=== PATIENT | female | born 1930 | race Caucasian/White ===

== ENCOUNTER → 2016-05-31 | Outpatient (CLI) | payer OTHER ==
[~2016-05-31] MED LIST: ACTONEL30 MG PO; APAP500 PO; ASPIRIN EC81 M1 PO; AZILECT1 MG PO; BUTRANS1 EAC2 TD; BUTRANS1 EAC3 TD; BUTRANS1 EACH TD; CALCIUM PO; CALCIUM500 M1 PO; CARBIDOPA-LEVO1 EAC9 PO; CELEBREX 200 M200 MG PO; CLARITIN10 MG PO; CYMBALTA60 MG PO; FIBER0.52 G1 PO; FIBERCON625 MG PO; FISHOIL PO; GABAPENTIN 100100 MG PO; GABAPENTIN100 MG PO; HYDROCODON-ACE1 EAC7 PO; K-DUR10 ME1 PO; LIPITOR40 MG PO; LYRICA 75 MG CA75 MG PO; MS CONTIN15 MG PO; MULTIVITAMINS PO; NEURONTIN 300300 M1 PO; NEXIUM40 MG PO; NORCO 5-325 TA1 EACH PO; OXYCODONE-ACET1 EACH PO; PERCOCET PO; STOOL SOFTENER100 MG PO; TRAMADOL 50 MG50 MG PO; TRILEPTAL150 MG PO; TYLENOL EX-STR500 M2 PO; VITAMIN D400 UNI1 PO; VITAMIN E400 UNIT PO
--- NOTE | ~2016-05-31 | HPC ---
[facility] [address] [place] [address] PAIN MANAGEMENT CONSULTATION Name: POLLARDMARCUS A Room #: REG SHARAN Olive#: [id number] Admission: 05/31/16 Attend Phys: Best Vasques DO Discharge: Date of : 34 Report #: [id number] THIS REPORT FOR: //name// CC: Avril Vasques The patient is a pleasant 85-year-old female, well known to pain clinic, typically treated for lumbar radiculopathy status post decompressive laminectomy, chronic pain syndrome requiring complex medication management. She was last seen in the pain clinic back in December. She has a spinal cord stimulator in place. She has chronic pain concerns, has been quite stable using a Butrans patch at 20 mcg every 7 days. The patient returns to pain clinic today noting she has been doing reasonably well. States medications provide sufficient analgesia to participate in activities of daily living. Rates her pain "zero" and is able to participate as noted in all activities. Pain is occasionally exacerbated with standing and walking. PHYSICAL EXAMINATION: Shows pleasant 85-year-old female modestly cachectic, 5 feet 4 and 111 pounds, though weight is generally stable. Blood pressure is elevated today at 180/90. I personally took this with sphygmomanometer and stethoscope. She has never had hypertension before, pulse 82, respirations are 14 and room air oxygen saturation 90%. She rises from chair easily. Gait is tandem. Lower extremity strength is diminished, but symmetric and preserved. Lumbar flexion is good. There is no tenderness noted in the lumbar spine. Straight leg raise is negative. MEDICATION: List was reconciled, which notes acetaminophen p.r.n., stool softener, carbidopa, levodopa, vitamin D, Azilect, potassium, Celebrex and Nexium. The patient does not use tobacco products. She has not fallen since we last saw her. She is at high risk for osteoporosis. Discussion with the patient today about therapeutic options, we elected to continue Butrans 20 mcg every 7 days, dispensed 4 patches with 5 refills. I will be happy to see her in 6 months or earlier if symptoms require. Otherwise, she has been remarkably stable. <ELECTRONICALLY SIGNED> By: Best Vasques DO 06/04/16 [id number] [id number] Best Vasques DO /nt
== END ==
LOC: PAIN 07:15
DX: M54.16 Radiculopathy, lumbar region (principal); G89.29 Other chronic pain; I10 Essential (primary) hypertension; M81.0 Age-related osteoporosis without current pathological fracture

== ENCOUNTER → 2016-11-30 | Outpatient (CLI) | payer OTHER ==
[~2016-11-30] VITALS: Ht 162.6 cm; Wt 51.5 kg
[2016-11-30 10:01] VITALS: BP 158/75
== END | disposition home or self-care (01) ==
LOC: PAIN 06:53
DX: M54.16 Radiculopathy, lumbar region (principal); G89.29 Other chronic pain; F11.20 Opioid dependence, uncomplicated; Z98.890 Other specified postprocedural states; Z88.2 Allergy status to sulfonamides; Z79.82 Long term (current) use of aspirin

== ENCOUNTER → 2017-05-23 | Outpatient (CLI) | payer OTHER ==
[~2017-05-23] VITALS: Ht 162.6 cm; Wt 53.4 kg
[~2017-05-23] MED LIST changes: +BUTRANS1 EAC4 TRANSDERM
--- NOTE | ~2017-05-23 | HPC ---
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 The patient has a spinal cord stimulator in place which she uses very infrequently. She has been stable on Butrans 20 mcg patch since November. She feels this is extremely helpful. In fact, she states that after her back surgery in August of 2013, she had ongoing back pain, a spinal cord stimulator afforded only nominal relief, the Butrans patches made her essentially pain free. She rates the pain as 0 on a VAS. She states she is able to participate in all activities of daily living. She traveled to [place] with her daughter to visit family members. She continues to be physically active. She is looking forward to going to [facility] in the spring to watch the [employer] games. PHYSICAL EXAMINATION: Shows an 86-year-old female, appearing younger than stated age, BMI is 20.2 kg/m2. Vital signs are stable as noted in the EMR. Rises from chair easily. Gait is minimally antalgic. Diffuse tenderness across the low back. No discrete trigger points are noted. Lower extremity strength is generally symmetric. Straight leg raise negative. Well-healed surgical scar compatible with prior history including decompressive laminectomy and spinal cord stimulator implant. RECOMMENDATIONS: Discussion with the patient today about therapeutic options. 1. Continue Butrans patch 20 mcg q.7 days, I have taken the liberty of writing for 4 patches with 5 refills. Follow up in 6 months for reevaluation. 2. Continue Celebrex, though I am not writing for this medication. 3. Encourage the patient to continue keeping her [employer] spinal cord stimulator battery relatively charge. Currently, she is really not using the device, but if symptoms change and she has increasing pain, we may consider reprogramming the device to get better coverage. Presently, she really does not use the device and again since we went to the time, effort and expensive implanting the device, we would suggest she simply keep the battery "alive." Discharged in good and stable condition. Follow up in 6 months, earlier if needed. <ELECTRONICALLY SIGNED> By: Best Vasques DO 05/24/17 0810 [id number] Best Vasques DO /nt
[2017-05-23 11:05] VITALS: BP 119/71
== END ==
LOC: PAIN 07:10
DX: M54.16 Radiculopathy, lumbar region (principal); Z98.890 Other specified postprocedural states; Z79.899 Other long term (current) drug therapy

== ENCOUNTER → 2017-11-01 | Outpatient (CLI) | payer OTHER ==
[~2017-11-01] VITALS: Ht 162.6 cm; Wt 51.3 kg
--- NOTE | ~2017-11-01 | HPC ---
[facility] [place] [place] [address] PAIN MANAGEMENT CONSULTATION Name: NILESH POLLARD Room #: REG SHARAN Schaefer#: [id number] Admission: 11/01/17 Attend Phys: Best Vasques DO Discharge: Date of : 34 Report #: [id number] THIS REPORT FOR: //name// CC: Avril Vasques DATE OF SERVICE: 11/01/2017 The patient is a very pleasant 87-year-old female, long known to the Pain Clinic, being treated for lumbar radiculopathy status post decompressive laminectomy, requiring complex medication management. She has a spinal cord stimulator in place. She uses a Butrans patch of 20 mcg she has for about the past year. She was last seen in Pain Clinic in May. She returns to Pain Clinic today. We had a prolonged visit and actually about 20 minutes of the visit was spent with advanced care planning discussions. Fortunately, the patient notes that she is pain free, rates the pain 0 on a VAS. She does, however, admit to some daytime somnolence. She also tells that she fell once, she was climbing a ladder. She fell striking her low back. She did not strike her head nor did she have concussion type symptoms. However, she had to call her daughter who did call 911. She is apparently found to have a compression fracture and did ultimately have a kyphoplasty. She is fairly cachectic, in fact BMI is low at 20 (5 feet 4 inches, 113 pounds with a BMI of 19.4 kg/m2). She is at high risk for osteoporosis and in fact is osteoporotic. She was little tearful today stating that her daughter wants her to move out of her hairston and move in with them. While her daughter and son-in-law are very accommodating and are in fact converting the first floor master bedroom to a small apartment for her, she is very hesitant to lose the autonomy of living independently. She understands that this may be an important step in her future care. Today, we did discuss concerns about end of life issues. She has been my patient for some time, I recall when her passed, she was very distressed. They had been greater than 50 years. They were always quite a cute couple, always came in together holding hands. He , I believe in 2014. Today, we talked about the need to have a durable power of casino floor walker and to be very specific about end of life issues, specifically issues with intubation, cardiac resuscitation, nursing homes and feeding tubes. I did discuss "caring conversations" with the patient and suggested [place] [address] PAIN MANAGEMENT CONSULTATION Name: POLLARD,NILESHMARIA INES BURGOS Room #: REG SHARAN Schaefer#: [id number] Admission: 11/01/17 Attend Phys: Best Vasques DO Discharge: Date of : 34 Report #: [id number] book, Being Mortal. All questions were answered. PHYSICAL EXAMINATION: Today is otherwise unremarkable. Again, she is becoming a little cachectic, BMI now below 20 kg/m2. She has actually been up and down over time, looks like her shukri in weight was BMI of around 18.4 around a year after her 's . Last visit in May, her weight was up to 53.5 pounds, BMI was 20.2 kg/m2. Vital signs are stable as noted in the EMR. She is alert and oriented to person, place, and time, judged to be a reasonable historian. Does have a little intention tremor. Gait is tandem with trace of ataxia. 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 No discrete trigger points. No areas compatible with acute compression fracture. Chronic axial back pain, lumbar radiculopathy, status post decompressive laminectomy with preserved lower extremity strength. Straight leg raise negative. ASSESSMENT: 1. Chronic pain syndrome requiring complex medication management. 2. Lumbar radiculopathy status post decompressive laminectomy. 3. Neuropathic pain component. 4. Osteoporosis. 5. Some early debility, recent fall and contemplating life changes of moving from her independent home to live with her daughter. RECOMMENDATION: We will trial decreasing Butrans patch to 15 mcg q. 7 days. I have taken the liberty of writing for a month of this medication with 3 refills. If she does well, we will continue. If, however, she has increased pain and decreased functional status, I will enable the nursing staff to phone in a prescription for Butrans 20 mcg q. 7 days, 4 patches with 3 refills. The patient was seen for prolonged visit today. Greater than 25 minutes in total with approximately half the time spent discussing advanced care planning. Discharged in good and stable condition. <ELECTRONICALLY SIGNED> By: Best Vasques DO 11/04/17 0710 [id number] Best Vasques DO /nt
[2017-11-01 10:15] VITALS: BP 130/67
== END ==
LOC: PAIN 06:48
DX: M81.0 Age-related osteoporosis without current pathological fracture (principal); M54.16 Radiculopathy, lumbar region; G89.4 Chronic pain syndrome; Z79.899 Other long term (current) drug therapy

== ENCOUNTER → 2018-02-24 | Outpatient (CLI) | payer OTHER ==
[~2018-02-24] VITALS: Ht 162.6 cm; Wt 52.3 kg
[2018-02-24 09:24] VITALS: BP 119/77
== END ==
LOC: PAIN 07:06
DX: M54.5 Low back pain (principal); G89.29 Other chronic pain; M19.042 Primary osteoarthritis, left hand; M19.041 Primary osteoarthritis, right hand; Z72.89 Other problems related to lifestyle; Z79.899 Other long term (current) drug therapy